=== PATIENT | male | born 1990 | race Caucasian/White ===

== ENCOUNTER 2019-01-30 00:09 | Emergency (ER) | payer BC ==
[~2019-01-30] VITALS: Ht 177.8 cm; Wt 108.9 kg
[2019-01-30] MEDS ORDERED: HALOPERIDOL LACTATE INJ 5 MG/ML VIAL ONE (00:14)
[2019-01-30] MEDS ORDERED: diphenhydrAMINE HCL 50 MG/ML VIAL ONE (00:14)
[2019-01-30] MEDS ORDERED: LORAZEPAM INJ 2 MG/ML VIAL ONE (00:15)
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
[2019-01-30] MEDS ORDERED: diphenhydrAMINE HCL 50 MG/ML VIAL IM ONE (00:30)
[2019-01-30] MEDS ORDERED: HALOPERIDOL LACTATE INJ 5 MG/ML VIAL IM ONE (00:30)
[2019-01-30] MEDS ORDERED: LORAZEPAM INJ 2 MG/ML VIAL IV ONE (00:30)
[2019-01-30 00:39] LABS: BASOPHILS % (AUTO) 0.3 % (0.0-2.0); EOSINOPHILS % (AUTO) 0.4 % (0.0-6.0); HEMATOCRIT 45 % (39-51); HEMOGLOBIN 15.2 g/dL (13.5-17.5); LYMPHOCYTES % (AUTO) 32.5 % (20.0-44.0); MEAN CORPUSCULAR HGB CONC 34 g/dl (31.0-36.0); MEAN CORPUSCULAR VOLUME 92 fL (80-96); MONOCYTES # (AUTO) 0.9 /CMM (0.1-1.30); MONOCYTES % (AUTO) 6.9 % (2.0-12.0); NEUTROPHILS # (AUTO) 7.4 /CMM (1.8-8.9); NEUTROPHILS % (AUTO) 59.9 % (43.0-81.0); PLATELET COUNT (AUTO) 201 /CMM (150-450); RED BLOOD CELL COUNT(AUTO) 4.93 MIL/uL (4.5-6.0); WHITE BLOOD COUNT (AUTO) 12.4 K/uL (4.3-11.0)
--- NOTE | 2019-01-30 01:00 | NUR ---
Urine collected and sent to lab.
[2019-01-30 01:01] LABS: ALBUMIN 3.9 g/dL (3.4-5.0); BILIRUBIN,DIRECT 0.1 mg/dL (0.0-0.2); BILIRUBIN,TOTAL 0.2 mg/dL (0.2-1.0); CALCIUM, SERUM 8.9 mg/dL (8.5-10.1); CREATININE 0.9 mg/dL (0.6-1.3); POTASSIUM 3.8 mmol/L (3.5-5.1); TOTAL PROTEIN, SERUM 8.9 g/dL (6.4-8.2)
[2019-01-30 01:02] LABS: SALICYLATE 1.1 mg/dL (2.8-20.0)
[2019-01-30 01:06] LABS: APPEARANCE,URINE Clear (CLEAR); BILIRUBIN,URINE Negative (NEGATIVE); BLOOD, URINE Negative Ery/uL (NEGATIVE); COLOR,URINE Yellow (YELLOW); KETONES,URINE Negative (NEGATIVE); LEUKOCYTE ESTERASE ,URINE Negative (NEGATIVE); NITRITE, URINE Negative (NEGATIVE); PH,URINE 5.5 (5.0-8.0); PROTEIN,URINE Negative (NEGATIVE); UGLUCOSE Negative (NEGATIVE); UROBILINOGEN,URINE 0.2 EU/dL (0.2)
--- NOTE | 2019-01-30 01:17 | NUR ---
[place] no signs of distress noted. pt vital signs stable. breaths equal and unlabored. will cont to monitor pt .
--- NOTE | 2019-01-30 06:06 | NUR ---
pt sleeping in gurney, no signs of distress noted. pt vital signs stable. will cont to monito pt
[2019-01-30 10:09] VITALS: BP 129/88
--- NOTE | 2019-01-30 10:10 | NUR ---
Patient discharged to home in stable condition. Written and verbal after care instructions given. Patient verbalizes understanding of instruction.
== END 2019-01-30 10:09 | disposition home or self-care (01) ==
LOC: ER 00:15
DX: F10.129 Alcohol abuse with intoxication, unspecified (principal); Y90.8 Blood alcohol level of 240 mg/100 ml or more
CPT/HCPCS: 36415; 70450; 80048; 80076; 80305; 80307; 80329; 81001; 85025; 96372 ×2; 99284; G0480; J1200; J1630; J2060; 81000-TC

== ENCOUNTER 2019-02-06 01:19 | Emergency (ER) | payer BC, OTHER ==
[~2019-02-06] VITALS: Ht 177.8 cm; Wt 108.9 kg
[2019-02-06 01:20] VITALS: BP 92/55
== END 2019-02-06 03:06 ==
LOC: ER 01:22
DX: F19.10 Other psychoactive substance abuse, uncomplicated (principal); F10.10 Alcohol abuse, uncomplicated; Y90.9 Presence of alcohol in blood, level not specified

== ENCOUNTER 2019-04-16 16:38 | Emergency (ER) | payer SELFPAY ==
[~2019-04-16] VITALS: Ht 170.2 cm; Wt 87.1 kg
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
--- NOTE | 2019-04-16 17:39 | NUR ---
Patient discharged to home in stable condition. Written and verbal after care instructions given. Patient verbalizes understanding of instruction.
[2019-04-16 17:40] VITALS: BP 128/88
== END 2019-04-16 17:41 | disposition home or self-care (01) ==
LOC: ER 16:38
DX: S60.211A Contusion of right wrist, initial encounter (principal); S80.211A Abrasion, right knee, initial encounter; S40.812A Abrasion of left upper arm, initial encounter; F32.9 Major depressive disorder, single episode, unspecified; W05.1XXA Fall from non-moving nonmotorized scooter, initial encounter; Y93.89 Activity, other specified; Y92.89 Other specified places as the place of occurrence of the external cause; Y99.8 Other external cause status
CPT/HCPCS: 73110

== ENCOUNTER 2020-09-21 00:26 | Emergency (ER) | payer BC, MEDICAID ==
[~2020-09-21] VITALS: Ht 170.2 cm; Wt 107.5 kg
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
[2020-09-21] MEDS ORDERED: HALOPERIDOL LACTATE INJ 5 MG/ML VIAL ONE (00:52)
[2020-09-21] MEDS ORDERED: LORAZEPAM INJ 2 MG/ML VIAL ONE (00:53)
[2020-09-21] MEDS ORDERED: HALOPERIDOL LACTATE INJ 5 MG/ML VIAL IM ONE (01:00)
[2020-09-21] MEDS ORDERED: LORAZEPAM INJ 2 MG/ML VIAL IM ONE (01:00)
[2020-09-21] MEDS ORDERED: diphenhydrAMINE HCL 50 MG/ML VIAL ONE (01:07)
[2020-09-21 01:10] LABS: BASOPHILS # (AUTO) 0.1 /CMM (0.0-0.2); BASOPHILS % (AUTO) 0.5 % (0.0-2.0); EOSINOPHILS % (AUTO) 0.8 % (0.0-6.0); HEMATOCRIT 44 % (39-51); LYMPHOCYTES # (AUTO) 3.6 /CMM (0.8-4.8); LYMPHOCYTES % (AUTO) 33.8 % (20.0-44.0); MEAN CORPUSCULAR HGB CONC 34 g/dl (31.0-36.0); MEAN CORPUSCULAR VOLUME 92 fL (80-96); MONOCYTES # (AUTO) 0.9 /CMM (0.1-1.30); MONOCYTES % (AUTO) 8.6 % (2.0-12.0); NEUTROPHILS # (AUTO) 6.1 /CMM (1.8-8.9); NEUTROPHILS % (AUTO) 56.3 % (43.0-81.0); PLATELET COUNT (AUTO) 233 /CMM (150-450); RED BLOOD CELL COUNT(AUTO) 4.82 MIL/uL (4.5-6.0); WHITE BLOOD COUNT (AUTO) 10.8 K/uL (4.3-11.0)
[2020-09-21 01:23] LABS: CARBON DIOXIDE 18 mmol/L (21-32); CHLORIDE 108 mmol/L (98-107); CREATININE 1.5 mg/dL (0.6-1.3); GLUCOSE 116 mg/dL (74-106); POTASSIUM 3.5 mmol/L (3.5-5.1); SODIUM SERUM 146 mmol/L (136-145); UREA NITROGEN, BLOOD 15 mg/dL (7-18)
[2020-09-21 01:28] LABS: ALANINE AMINOTRANSFERASE 24 U/L (12-78); ALBUMIN 3.8 g/dL (3.4-5.0); ALCOHOL, BLOOD 297 mg/dL (0-0); ALKALINE PHOSPHATASE 102 U/L (46-116); ASPARTATE AMINOTRANSFERASE 14 U/L (15-37); BILIRUBIN,DIRECT 0.1 mg/dL (0.0-0.2); BILIRUBIN,TOTAL 0.3 mg/dL (0.2-1.0); TOTAL PROTEIN, SERUM 8.8 g/dL (6.4-8.2)
[2020-09-21 01:30] LABS: ACETAMINOPHEN < 2 ug/ml (10-30)
[2020-09-21] MEDS ORDERED: diphenhydrAMINE HCL 50 MG/ML VIAL IM ONE (01:30)
--- NOTE | 2020-09-21 02:30 | NUR ---
URINE COLLECTED, SENT TO LAB.
--- NOTE | 2020-09-21 02:53 | NUR ---
PT RESTING COMFORTABLY IN BED. RESPIRATIONS EVEN AND UNLABORED. VITAL SIGNS STABLE. NO ACUTE DISTRESS NOTED AT THIS TIME. WILL CONTINUE TO MONITOR
--- NOTE | 2020-09-21 06:22 | NUR ---
pt alert and oriented x 3. ambulatory with steady gaits to the bathroom. remained calm and cooperative, requesting to leave. dr crane made aware . ok to d/c with .
--- NOTE | 2020-09-21 06:27 | NUR ---
po fluid tolerated well. no s/s of choking. no n/v
--- NOTE | 2020-09-21 06:29 | NUR ---
Patient is awake and alert to self, day, and place. Pt ambulatory with a steady gait. Pt requesting to be discharged home. Pt ok to be discharged by Dr Vega. Patient discharged to home in stable condition. Written and verbal after care instructions given. Patient verbalizes understanding of instruction.
[2020-09-21 06:31] VITALS: BP 115/74
== END 2020-09-21 06:31 | disposition home or self-care (01) ==
LOC: ER 00:28
DX: F10.129 Alcohol abuse with intoxication, unspecified (principal); R45.6 Violent behavior; F19.10 Other psychoactive substance abuse, uncomplicated; F32.9 Major depressive disorder, single episode, unspecified; Y90.8 Blood alcohol level of 240 mg/100 ml or more; Z77.098 Contact with and (suspected) exposure to other hazardous, chiefly nonmedicinal, chemicals
CPT/HCPCS: 36415; 80048; 80076; 80299; 80307; 80320; 85025; 96372 ×2; 99284; J1200; J1630; J2060; G0480